=== PATIENT | male | born 1965 | race Caucasian/White ===

== ENCOUNTER → 2020-04-28 | Outpatient (CLI) | payer BC | END | disposition home or self-care (01) | LOC: CVU 06:53 | PROVIDERS: ATTEND Internal Medicine Cardiovascular Disease | DX: I08.2 Rheumatic disorders of both aortic and tricuspid valves (principal); I25.10 Atherosclerotic heart disease of native coronary artery without angina pectoris; R07.9 Chest pain, unspecified; R06.02 Shortness of breath | CPT/HCPCS: 93306 ==

== ENCOUNTER → 2020-05-22 | Outpatient (CLI) | payer BC | END | disposition home or self-care (01) | LOC: CARD 16:10 | PROVIDERS: ATTEND Physician Assistant Medical | DX: R53.83 Other fatigue (principal); Z87.09 Personal history of other diseases of the respiratory system | CPT/HCPCS: 94060; 94726; 94729 ==